=== PATIENT | male | born 1960 | race Caucasian/White ===

== ENCOUNTER 2016-09-03 11:11 | Inpatient (IN) ==
[2016-09-03 13:53] LABS: MANUAL DIFF NEEDED? NO
[2016-09-03 14:05] LABS: BASO% 0.3 % (0.0-0.8); EOS# 0.03 X1000 (0.0-0.7); EOS% 0.5 % (0.0-10.0); HEMATOCRIT 48.9 % (42.0-52.0); IMM GRAN# 0.01 X1000 (0.0-0.04); IMM GRAN% 0.2 % (0.0-0.5); LYMPH# 0.99 X1000 (1.2-3.4); LYMPH% 16.5 % (20.5-51.1); MCH 33.6 PG (27-31); MCHC 34.8 g/dL (33-37); MCV 96.6 FL (81-99); MPV 9.7 FL (7.4-10.4); NEUT% 67.5 % (42.2-75.2); PLT 231 X1000 (130-400); RBC 5.06 XMIL (4.7-6.1)
[2016-09-03 14:28] LABS: CALCIUM 10.1 mg/dL (8.8-10.2); POTASSIUM 4.1 mmol/L (3.5-5.1)
--- NOTE | 2016-09-03 14:38 | Diag Imaging Result Document ---
PROCEDURE NAME: CHEST/ABD TUBE PLACEMENT - 09/03/2016 AP CHEST AND ABDOMEN: INDICATION: For NG tube placement. FINDINGS: The NG tube is coiled in the mid esophagus. The findings were called to med/surg at 1423 hours.
[2016-09-03] MEDS: MORPHINE IV PRN ×2 (14:43→20:05)
[2016-09-03] MEDS: ZOFRAN IV PRN (14:43)
[2016-09-03] MEDS: LR 1,000 ML IV SCH ×2 (14:47→23:22)
--- NOTE | 2016-09-03 16:22 | Diag Imaging Result Document ---
PROCEDURE NAME: CHEST/ABD TUBE PLACEMENT - 09/03/2016 AP CHEST AND ABDOMEN.: FINDINGS: There is an NG tube in the stomach. There continues to be gaseous dilatation of multiple small bowel loops in the mid abdomen. IMPRESSION: NG tube in the stomach.
--- NOTE | 2016-09-03 16:37 | Diag Imaging Result Document ---
PROCEDURE NAME: ABDOMEN/PELVIS W/O CONTRAST - 09/03/2016 CT UROGRAM WITHOUT CONTRAST: FINDINGS: There are some fibrotic opacities present in the right lower lobe which were apparently also present at the time of the previous study of 01/11/2015. There is an NG tube with its tip in the stomach. The stomach is still somewhat distended with fluid and gas. There is marked dilatation of the proximal small bowel, pretty much from the ligament of Treitz. There is nondistended ileum present the transitional point may be in the upper pelvis around image 172 in the midline. There is no evidence of volvulus or definite mass. No abscess or other abnormal fluid collection is demonstrated. There are at least 2 small stones in the right collecting system. There is also apparent cyst in the midpole of the right kidney. There are no gallstones. The spleen is not enlarged. There is diverticulosis coli in the left colon, particularly the sigmoid. No evidence of diverticulitis or abscess is present. There is some gas and stool in the colon, including the rectum. There is no evidence of appendicitis. There is degenerative disk disease, particularly at the L5-S1 level. 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 IMPRESSION: Partial or early mid small bowel obstruction. Right nephrolithiasis. The findings were discussed with Dr. Sanabria by telephone at 1610 hours.
--- NOTE | 2016-09-03 17:42 | HISTORY AND PHYSICAL ---
ADMITTING DIAGNOSIS: Partial small bowel obstruction. PRIMARY CARE PHYSICIAN: Rayo Miranda. HISTORY OF PRESENT ILLNESS: A 55-year-old male presenting with a several day history of abdominal pain with nausea, vomiting. He was seen by his primary care physician, had abdominal distention, had an abdominal film that showed a partial bowel obstruction. Dr. Miranda contacted me directly. We discussed over the phone the patient's situation. We elected to directly admit him to [facility]. Patient was admitted, had an NG tube placed which has subsequently been repositioned but ultimately placed into the stomach from which he has been now draining bilious output. He says he has had some relief with the placement of an NG tube. He did have a CT scan which did confirm a small bowel obstruction. There appears to be no obvious masses or internal hernias causing the obstruction. The patient does have a surgical history which may mean this is related to scar tissue. The patient is currently nontoxic and resting comfortably in his bed. PAST MEDICAL HISTORY: Includes history of diverticulosis and hypertension. PAST SURGICAL HISTORY: Includes a left inguinal hernia repair, an unknown lower midline incision for unknown surgery. SOCIAL HISTORY: The patient is a current smoker. Also drinks alcohol once a week. Had never used illicit drugs. FAMILY HISTORY: Positive for cancer and diabetes. ALLERGIES: No known allergies. HOME MEDICATIONS: Include diltiazem. REVIEW OF SYSTEMS: A full 10 point review of systems obtained, negative except as specified in HPI. PHYSICAL EXAMINATION: VITAL SIGNS: The patient is currently afebrile. Temperature 97.6 degrees, pulse has ranged anywhere from 88-102, blood pressure is 134/84, respiratory rate 20 and nonlabored. Oxygen saturation 94% on room air. GENERAL: No acute distress. Alert, interactive, male who looks stated age. HEENT: Normocephalic, atraumatic. Pupils equal, round, reactive to light. Mucous membranes moist. NG tube in place with bilious output. Trachea midline. CARDIOVASCULAR: Regular rate and rhythm. LUNGS: Grossly clear. ABDOMEN: Soft, nondistended at this time, nontender at this time. He does have a scar in his left inguinal region consistent with inguinal hernia. He does have what appears to be a lower midline incision for unknown reasons. He has no peritoneal signs on exam. EXTREMITIES: Moves all extremities. NEUROLOGIC: Grossly intact. SKIN: No signs of jaundice. VASCULAR: All extremities perfused. DIAGNOSTIC DATA: His white blood cell count is normal. His hematocrit is normal. His platelet count is normal. He has no left shift. His labs except for a creatinine of 1.6 are within normal limits. CT scan independently reviewed and radiology report reviewed. Patient does have what appears to be a partial small-bowel obstruction but no other obvious masses or sources of obstruction. ASSESSMENT AND PLAN: A 55-year-old male with likely partial small-bowel obstruction. 1. A likely partial small bowel obstruction at this time. Given his surgical history, I suspect this might be related to adhesions. We will keep him with an NG tube and decompressed the intestinal system. Hopefully we continue to see improvement with a conservative nonoperative management. If the patient's clinical status changes may need surgical intervention. Discussed this with the patient. We will keep the NG tube to low wall intermittent suction and repeat abdominal film in the morning. 2. Dehydration. Patient's creatinine is 1.6. We will continue to resuscitate with lactated Ringer's and recheck in the morning. Suspect this is also related to his bowel obstruction. I will continue to follow him. cc: Preet Sanabria MD
[2016-09-03 19:11] LABS: CALCIUM 9.6 mg/dL (8.8-10.2)
[2016-09-04] MEDS: MORPHINE IV PRN ×2 (03:02→09:58)
[2016-09-04] MEDS: ZOFRAN IV PRN ×3 (03:02→14:44)
[2016-09-04] MEDS ORDERED: LR 1,000 ML IV ONE (07:37)
[2016-09-04] MEDS ORDERED: LR 1,000 ML IV SCH (07:38)
[2016-09-04 08:13] LABS: CALCIUM 9.4 mg/dL (8.8-10.2); POTASSIUM 3.9 mmol/L (3.5-5.1)
--- NOTE | 2016-09-04 08:18 | PROGRESS NOTE ---
DATE: 09/04/2016 SUBJECTIVE: The patient had a rough night. They did drain over a liter of bilious output from his NG tube and no overall improvement. OBJECTIVE: Vital Signs: Patient is currently afebrile. Temperature 99.1, his pulse is ranging anywhere between 97-110, respiratory nonlabored at 18, blood pressure 154/96, O2 saturation 94% on room air. General Examination: No acute distress but appears uncomfortable. male, looks stated age. HEENT: Normocephalic, atraumatic. Pupils equally round, react to light. Mucous membranes moist. Oropharynx benign. NG tube in place. Neck: Supple. Trachea midline. Cardiovascular: Regular rate and rhythm to mildly tachycardic. Lungs: Grossly clear. Abdomen: Soft. Minimally tender. No peritoneal signs. Extremities: Moves all extremities. Neurologic: Grossly intact. Skin: No signs of jaundice. Vascular: All extremities perfused. Laboratory: Reviewed from yesterday afternoon. His creatinine is down to 2.2. Repeat labs later this morning. Abdominal films were from this morning reviewed but no official report. It does appear that he has continued progression of his bowel obstruction. ASSESSMENT AND PLAN: A 55-year-old, male with a small-bowel obstruction. 1. Small bowel obstruction. At this time, patient has not had any clinical improvement with 12 hours of nasogastric tube decompression and over a liter out. Overall, it looks like he is not doing well. We will plan on surgical intervention. 2. Dehydration. At this time, we will give him a bolus of lactated Ringer's. We will increase his intravenous fluids to 150 mL an hour and monitor him closely. I discussed extensively with the patient about his prognosis. I suspect that he is not going to improve with the nasogastric tube. Discussed with him surgical intervention including exploratory laparotomy. We will transfer him over to the hospital and do an exploratory laparotomy. All questions were answered. cc: Preet Sanabria MD
--- NOTE | 2016-09-04 09:11 | Diag Imaging Result Document ---
PROCEDURE NAME: FLAT/UPRIGHT ABD/1 VIEW CHEST - 09/04/2016 FLAT AND UPRIGHT ABDOMEN: FINDINGS: The NG tube remains in the stomach. There is still air-fluid levels throughout distended small-bowel loops in the mid abdomen. There is still some retained stool and gas in the colon including the rectum. This may be more a reflection of ileus than the incomplete nature of the small-bowel obstruction. IMPRESSION: Small bowel obstruction and constipation. PA CHEST: FINDINGS: There is no evidence of acute cardiac or pulmonary disease. The appearance of the chest has not changed significantly since 09/03/2016. IMPRESSION: Stable chest.
[2016-09-04] MEDS ORDERED: MORPHINE IV PRN (10:32)
--- NOTE | 2016-09-04 11:11 | EKG Report ---
Test Performed on : 09/04/2016 10:57:36 AM Test Reason : pre-op Blood Pressure : / mmHG Vent. Rate : 081 BPM Atrial Rate : 081 BPM P-R Int : 138 ms QRS Dur : 090 ms QT Int : 378 ms P-R-T Axes : 062 -38 037 degrees QTc Int : 439 ms Normal sinus rhythm. Left axis deviation ST \T\ T wave abnormality, consider lateral ischemia Abnormal ECG No previous ECGs available Confirmed by Juancarlos Delgado MD ([id number]) on 09/04/2016 6:01:02 PM
[2016-09-04] MEDS: LR 1,000 ML IV SCH ×2 (11:53→20:50)
[2016-09-04 12:55] LABS: BASO% 0.3 % (0.0-0.8); EOS# 0.04 X1000 (0.0-0.7); EOS% 1.1 % (0.0-10.0); HEMOGLOBIN 15.9 g/dL (14.0-18.0); LYMPH# 0.67 X1000 (1.2-3.4); LYMPH% 18.9 % (20.5-51.1); MANUAL DIFF NEEDED? NO; MCH 33.2 PG (27-31); MCHC 33.8 g/dL (33-37); MCV 98.1 FL (81-99); MONO% 22.6 % (1.7-9.3); NEUT% 57.1 % (42.2-75.2); PLT 171 X1000 (130-400); RBC 4.79 XMIL (4.7-6.1)
[2016-09-04 13:10] LABS: POTASSIUM 4.1 mmol/L (3.5-5.1)
[2016-09-04] MEDS ORDERED: MEFOXIN ONE (15:31)
[2016-09-04] MEDS ORDERED: NS ONE (15:31)
[2016-09-04] MEDS ORDERED: CLAVE SECONDARY SET 11953 ONE (15:31)
[2016-09-04] MEDS: MEFOXIN 2 GM/NS 2 GM/50 ML IVPB IV ONE ×3 (15:48→16:05)
[2016-09-04] MEDS ORDERED: FENTANYL ONE (18:35)
[2016-09-04] MEDS ORDERED: DIPRIVAN 1% ONE (18:38)
[2016-09-04] MEDS ORDERED: MORPHINE ONE (18:44)
[2016-09-04] MEDS ORDERED: MORPHINE PCA IV PRN (18:58)
[2016-09-04] MEDS ORDERED: NARCAN IV PRN (18:58)
[2016-09-04] MEDS ORDERED: MORPHINE PCA ONE (19:23)
--- NOTE | 2016-09-04 21:05 | OPERATIVE NOTE ---
PROCEDURE DATE: 09/04/2016 PREOPERATIVE DIAGNOSIS: Small-bowel obstruction. POSTOPERATIVE DIAGNOSIS: Small-bowel obstruction secondary to diverticular adhesions. PROCEDURE: 1. Exploratory laparotomy. 2. Lysis of adhesions. 3. Small bowel resection with stapled [id number] functional end-to-end anastomosis. 4. Rigid proctoscopy. SURGEON: Preet Sanabria MD. CRAFT ARTIST: Dr. Alegre for the exploratory laparotomy and small-bowel resection. He assisted with dissection, resection and mobilization. ANESTHESIA: General endotracheal. INTRAOPERATIVE FINDINGS: As above. COMPLICATIONS: None at time of dictation. ESTIMATED BLOOD LOSS: 300 mL. SPECIMENS REMOVED: Small bowel. DRAINS: 19-Ethiopian Wilmer drain. BRIEF HISTORY: The patient is a 55-year-old male presenting with small-bowel obstruction. He did not improve and had a clinical deterioration. It is felt the patient would benefit from exploratory laparotomy. The risks, benefits, and alternatives were discussed. All questions answered. DESCRIPTION OF PROCEDURE: After informed consent was obtained, patient brought to the operative theatre, transferred to operating table, placed in supine position. General endotracheal anesthesia was then performed without complication. A formal time-out was then performed confirming patient, date, procedure. All were in agreement. At that time, attention was given to abdomen. After the time-out, we made a standard midline incision to enter into the abdomen. We encountered small bowel. We ran the small bowel from the ligament of Treitz to the ileocecal bowel. We found the point of obstruction down in the pelvis. The small bowel appeared to be intimately attached and scarred to the colon. With meticulous dissection we were able to take the small bowel off the colon while preserving the colon. There were 2 unavoidable enterotomies made in the small bowel secondary to their close adhesions to the colon. We closed these quickly with silk stitch. Given these injuries and the overall appearance of the small bowel having some degree of ischemia, we elected to do a small-bowel resection. We did this with a CAREN stapler and performed small-bowel anastomosis pmyo-io-tios functional end-to- end with the stapler with good results. We closed the mesenteric defect. We reexamined the colon. It appeared to be intact. There appeared to be no mucosal or serosal injuries noted. To prove this we performed a rigid proctoscopy. We placed the patient in frogleg position and performed a digital rectal exam and then inserted a rigid proctoscopy. We looked at the mucosal surface. It appeared to be normal. Inflated the colon. While under water we did not see any bubbles. The colon itself appeared to be normal. There was some degree of contamination during the procedure, so we elected to leave a drain. We tunneled a 19-Ethiopian Wilmer drain from the right lower quadrant down into the pelvis. We irrigated out the abdomen copiously. We closed the fascia in layers using chromic for the peritoneum and running loop PDS for the fascia, and argenis for the skin. The patient tolerated procedure well. It should be noted that we confirmed the NG tube was in the stomach at the completion the case. Postoperatively, we will keep him on antibiotics given the contamination and follow him clinically. cc: Preet Sanabria MD
[2016-09-04] MEDS: MEFOXIN 2 GM/NS 2 GM/50 ML IVPB IV SCH (22:52)
[2016-09-05] MEDS: MORPHINE PCA IV PRN ×2 (02:36→13:21)
[2016-09-05] MEDS: PERIDEX MT SCH ×3 (03:22→21:00)
[2016-09-05 04:33] LABS: URINE CULTURE NEEDED? NO; URINE MICRO REVIEW NEEDED? NO; URINE SOURCE CATH
[2016-09-05 04:34] LABS: BILIRUBIN URINE NEGATIVE (NEGATIVE); BLOOD URINE NEGATIVE (NEGATIVE); COLOR YELLOW; GLUCOSE URINE NEGATIVE (NEGATIVE); LEUKOCYTES URINE NEGATIVE (NEGATIVE); NITRITE URINE NEGATIVE (NEGATIVE); PROTEIN URINE 50 mg/dL (NEGATIVE); SP GRAVITY URINE 1.025; TURBIDITY URINE CLEAR (CLEAR); UROBILINOGEN URINE NORMAL (NORMAL)
[2016-09-05 04:35] LABS: UR EPITHELIAL CELLS <10 /HPF (<10); URINE BACTERIA NEGATIVE /HPF; URINE WBC <10 /HPF (<10)
[2016-09-05] MEDS: MEFOXIN 2 GM/NS 2 GM/50 ML IVPB IV SCH ×4 (05:01→20:59)
[2016-09-05] MEDS: HEPARIN SUBQ SCH ×3 (05:01→20:59)
[2016-09-05] MEDS: LR 1,000 ML IV SCH ×4 (05:02→20:59)
--- NOTE | 2016-09-05 07:33 | PROGRESS NOTE ---
DATE: 09/05/2016 SUBJECTIVE: The patient is doing well. No major issues. He says he feels better after his surgery. His NG tube output has decreased. His urine output has been good since the surgery. OBJECTIVE: Vital Signs: The patient is currently afebrile. His vital signs have been stable. General: No acute distress. Cardiovascular: Regular rate and rhythm. Lungs are grossly clear. Abdomen soft, appropriately tender. Incision is clean, dry, and intact. ASSESSMENT AND PLAN: A 55-year-old male, now postop day 1 from exploratory laparotomy and small bowel resection for small bowel obstruction. 1. Postoperative state. At this time, the patient is doing well. We will keep his NG tube in place until he has return of bowel function and monitor him closely. We will keep him on a PROCESS CONTROL SUPERVISOR until then. 2. Dehydration. At this time, I suspect the patient has been resuscitated. He is having good urine output. Will discontinue his Schofield. cc: Preet Sanabria MD
[2016-09-05] MEDS ORDERED: NORCURON ONE (09:51)
[2016-09-05] MEDS ORDERED: DECADRON ONE (09:51)
[2016-09-05] MEDS ORDERED: ZOFRAN ONE (09:51)
[2016-09-05] MEDS ORDERED: EXTENSION SET 32 IN 4522 ONE (09:51)
[2016-09-05] MEDS ORDERED: STERILE WATER INJ. ONE (09:51)
[2016-09-05] MEDS ORDERED: ROBINUL ONE (09:51)
[2016-09-05] MEDS ORDERED: XYLOCAINE-MPF 2% ONE (09:51)
[2016-09-05] MEDS ORDERED: ANESTHESIA PB SET 88 IN 5742 ONE (09:51)
[2016-09-05] MEDS ORDERED: LR 4,000 ML ONE (09:51)
[2016-09-05] MEDS ORDERED: QUELICIN (DOSE) ONE (09:51)
[2016-09-05] MEDS ORDERED: NEOSTIGMINE ONE (09:51)
[2016-09-06] MEDS: MEFOXIN 2 GM/NS 2 GM/50 ML IVPB IV SCH ×5 (04:18→21:19)
[2016-09-06] MEDS: LR 1,000 ML IV SCH ×5 (04:19→21:19)
[2016-09-06] MEDS: HEPARIN SUBQ SCH ×3 (06:12→21:19)
[2016-09-06] MEDS ORDERED: SODIUM CHLORIDE 0.9% INJ SCH (07:00)
[2016-09-06] MEDS: PERIDEX MT SCH ×2 (08:17→21:19)
[2016-09-06] MEDS: SODIUM CHLORIDE 0.9% INJ SCH (08:19)
[2016-09-06] MEDS: PROTONIX IV SCH (08:19)
[2016-09-06 10:19] LABS: AGAP 9; BUN 20 mg/dL (8-22); CALCIUM 8.3 mg/dL (8.8-10.2); CHLORIDE 98 mmol/L (98-107); COSMO 273; SODIUM 136 mmol/L (136-145); TCO2 29 mmol/L (25-35)
--- NOTE | 2016-09-06 10:29 | PROGRESS NOTE ---
DATE: 09/06/2016 SUBJECTIVE: Feels better. He has started passing a little gas last night. NG tube output is quite high. He is drinking some ice. OBJECTIVE: No fever. He was 98.4 this morning, pulse 87, blood pressure 145/80 , oxygen saturation 100% on 2 L. General: He is alert. NG tube is bilious Abdomen is soft, appropriately tender. Dressing is clean, dry, and intact. I do not see any cellulitis. LABORATORIES: Labs are pending this morning. ASSESSMENT AND PLAN: This is a 55-year-old male status post exploratory laparotomy with lysis of adhesions for bowel obstruction with small-bowel resection. NG tube put out 1650, but he is having return of bowel function. Keep his NG tube today. If he continues to pass gas today we will discontinue it tomorrow. We will replete his electrolytes as appropriate. He is also on antibiotic per Dr. Sanabria. He is on PPI and DVT prophylaxis. He has a CYCLE COUNTER for pain. cc: MD Preet Phillips MD MTDD
[2016-09-06] MEDS: MORPHINE PCA IV PRN (10:32)
[2016-09-06 18:13] LABS: BASO% 0.2 % (0.0-0.8); EOS# 0.14 X1000 (0.0-0.7); EOS% 2.6 % (0.0-10.0); HEMATOCRIT 36.4 % (42.0-52.0); HEMOGLOBIN 12.1 g/dL (14.0-18.0); IMM GRAN# 0.02 X1000 (0.0-0.04); IMM GRAN% 0.4 % (0.0-0.5); LYMPH# 0.52 X1000 (1.2-3.4); LYMPH% 9.5 % (20.5-51.1); MANUAL DIFF NEEDED? NO; MCH 33.3 PG (27-31); MCHC 33.2 g/dL (33-37); MCV 100.3 FL (81-99); MONO# 0.32 X1000 (0.11-0.59); MONO% 5.8 % (1.7-9.3); MPV 10.9 FL (7.4-10.4); NEUT% 81.5 % (42.2-75.2); PLT 104 X1000 (130-400); RBC 3.63 XMIL (4.7-6.1)
[2016-09-07] MEDS: LR 1,000 ML IV SCH ×4 (03:04→22:51)
[2016-09-07] MEDS: MEFOXIN 2 GM/NS 2 GM/50 ML IVPB IV SCH ×5 (03:10→18:21)
[2016-09-07] MEDS: HEPARIN SUBQ SCH ×3 (05:51→21:09)
[2016-09-07] MEDS: SODIUM CHLORIDE 0.9% INJ SCH (05:52)
[2016-09-07] MEDS: PROTONIX IV SCH ×2 (05:52→06:00)
[2016-09-07] MEDS: PERIDEX MT SCH ×3 (07:49→21:09)
[2016-09-07] MEDS: MORPHINE PCA IV PRN (10:07)
--- NOTE | 2016-09-07 15:24 | PROGRESS NOTE ---
DATE: 09/07/2016 SUBJECTIVE: He is doing well. He is passing gas. NG tube output has been about a liter, but he has eaten quite a bit of ice and water. No real abdominal pain. OBJECTIVE: Vital signs: No fevers, no tachycardia. Blood pressure 150/76. Abdomen: Soft, appropriately tender. Incision clean, dry, and intact. A scant amount of drainage in the central aspect and no erythema here. LABORATORY: I reviewed his labs. ASSESSMENT: This is a 55-year-old male status post exploratory laparotomy with bowel resection for small bowel obstruction. He is doing well. He has had return of bowel function. NG tube output was marginally elevated and bilious, but he is eating and drinking quite a lot. We will test clamp his tube today and if residuals are low, we will discuss removing that this afternoon. Otherwise, increase out of bed, mobility and ambulation and advance his diet as tolerated after tube removal. cc: MD Preet Phillips MD
[2016-09-08] MEDS: LR 1,000 ML IV SCH ×3 (06:10→21:21)
[2016-09-08] MEDS: SODIUM CHLORIDE 0.9% INJ SCH (06:11)
[2016-09-08] MEDS: PROTONIX IV SCH (06:11)
[2016-09-08] MEDS: HEPARIN SUBQ SCH ×3 (06:11→21:21)
--- NOTE | 2016-09-08 06:32 | PROGRESS NOTE ---
DATE: 09/08/2016 SUBJECTIVE: Patient doing well. Tolerating his NG tube out. Reports passage of flatus. No bowel movement yet. OBJECTIVE: Vital Signs: Patient is currently afebrile. His vital signs are stable. General: No acute distress. Cardiovascular: Regular rate and rhythm. Lungs: Grossly clear. Abdomen: Soft, nondistended. Appropriately tender. Faint bowel sounds auscultated. LABORATORY: Currently none. ASSESSMENT AND PLAN: A 55-year-old male status post exploratory laparotomy with small bowel resection for adhesions. Postoperative state at this time, we will start the patient on clear liquid diet and monitor him closely. If he seemed to improved and tolerated well, we will advance him and transition him over to a regular diet and p.o. pain medicine. At this point once his bowel function returns we will have him discharged. cc: Preet Sanabria MD
[2016-09-08] MEDS: PERIDEX MT SCH ×2 (09:54→21:22)
[2016-09-08] MEDS: MORPHINE PCA IV PRN (19:36)
[2016-09-09] MEDS: ZOFRAN IV PRN ×2 (02:09→12:22)
--- NOTE | 2016-09-09 06:05 | PROGRESS NOTE ---
DATE: 09/09/2016 SUBJECTIVE: The patient did have a bowel movement. Did have an episode of emesis. He says he is not feeling nauseated right now but wants to remain on his clear liquid diet. OBJECTIVE: Vital Signs: Patient is currently afebrile. His vital signs have been stable. General Examination: No acute distress. Cardiovascular: Regular rate and rhythm. Lungs: Grossly clear. Abdomen: Soft, nondistended, and appropriately tender. COMFORT drain in place with 160 of serosanguineous output. Laboratory: None. ASSESSMENT AND PLAN: A 55-year-old, male status post exploratory laparotomy with small bowel resection for adhesions. Postoperative state. At this time, patient will remain on a clear liquid diet given his nausea and emesis. I think he is having to start of return of bowel function. We will wait for full return of bowel function prior to discharge and advancement of his diet. We will continue monitoring his Onofre-Pickard drain output. cc: Preet Sanabria MD
[2016-09-09] MEDS: SODIUM CHLORIDE 0.9% INJ SCH (06:15)
[2016-09-09] MEDS: PROTONIX IV SCH (06:15)
[2016-09-09] MEDS: HEPARIN SUBQ SCH ×3 (06:15→21:19)
[2016-09-09] MEDS: LR 1,000 ML IV SCH ×3 (07:44→21:19)
[2016-09-09] MEDS: PERIDEX MT SCH ×2 (09:17→21:20)
[2016-09-10] MEDS: LR 1,000 ML IV SCH ×7 (00:13→21:38)
[2016-09-10] MEDS: ZOFRAN IV PRN ×3 (03:03→18:55)
[2016-09-10] MEDS: MORPHINE PCA IV PRN (05:14)
[2016-09-10] MEDS: PROTONIX IV SCH (06:27)
[2016-09-10] MEDS: SODIUM CHLORIDE 0.9% INJ SCH ×2 (06:27→06:29)
[2016-09-10] MEDS: HEPARIN SUBQ SCH ×3 (06:27→21:38)
--- NOTE | 2016-09-10 06:31 | PROGRESS NOTE ---
DATE: 09/10/2016 SUBJECTIVE: Patient still with some nausea, although he is passing gas. He has not had a bowel movement since yesterday. His nausea is somewhat better but still persistent. He is still on a clear liquid diet. OBJECTIVE: Vital Signs: Patient is currently afebrile. His vital signs have been stable. General Examination: No acute distress. Cardiovascular: Regular rate and rhythm. Lungs: Grossly clear. Abdomen: Soft, nondistended. Appropriately tender to palpation. COMFORT drain in place with serosanguineous output. Laboratory: None. ASSESSMENT/PLAN: A 55-year-old, male status post exploratory laparotomy with small bowel resection for adhesions. Postoperative state. At this time, the patient probably still has somewhat of a postoperative ileus. We will keep him on a clear liquid diet and monitor his nausea. If his nausea improves, we will consider advancing his diet. Otherwise, patient is to mobilize today. cc: Preet Sanabria MD
[2016-09-10] MEDS: PERIDEX MT SCH ×3 (07:38→21:38)
[2016-09-11] MEDS: ZOFRAN IV PRN ×2 (02:46→21:06)
[2016-09-11] MEDS: LR 1,000 ML IV SCH ×5 (02:59→21:29)
[2016-09-11] MEDS: HEPARIN SUBQ SCH ×3 (05:35→21:29)
[2016-09-11] MEDS: MORPHINE PCA IV PRN (06:07)
--- NOTE | 2016-09-11 06:11 | PROGRESS NOTE ---
DATE: 09/11/2016 SUBJECTIVE: The patient did have an episode of emesis last night but says that he is feeling better. He is reporting still passing gas. He has had no bowel movement since 2 days ago. His nausea seems to be improving. He is tolerating his clear liquid diet except for that episode of nausea. OBJECTIVE: Vital Signs: Patient is currently afebrile. His vital signs have been stable. Cardiovascular: Regular rate and rhythm. Lungs: Grossly clear. Abdomen: Soft, nondistended. Appropriately tender to palpation. Incision healing okay. There is some mild erythema noted around his umbilicus and inferiorly. The Onofre-Pickard drain is in place with serous output recorded at 700. Laboratory: None. ASSESSMENT AND PLAN: A 55-year-old, male status post exploratory laparotomy with small- bowel resection for adhesions. Postoperative state. At this time, the patient still probably has likely a postoperative ileus. We will keep him on a clear liquid diet until his nausea improves. His Onofre-Pickard is at 700 recorded out. It is purely serous. If it continues to be high, may consider getting a Onofre- Pickard creatinine level. Although we were far away from his bladder and his ureters, we may need to rule that out as a possible injury but will monitor his output. If it decreases, we will just observe. Otherwise, we will wait the patient to have definitive return of bowel function. cc: Preet Sanabria MD
[2016-09-11] MEDS: SODIUM CHLORIDE 0.9% INJ SCH (10:15)
[2016-09-11] MEDS: PROTONIX IV SCH (10:15)
[2016-09-11] MEDS: PERIDEX MT SCH ×2 (10:15→21:29)
[2016-09-12] MEDS: ZOFRAN IV PRN (03:29)
[2016-09-12] MEDS: LR 1,000 ML IV SCH ×4 (03:29→23:31)
[2016-09-12] MEDS: MORPHINE PCA IV PRN (03:36)
[2016-09-12] MEDS ORDERED: LR 1,000 ML IV ONE (05:46)
[2016-09-12] MEDS: PROTONIX IV SCH (06:15)
[2016-09-12] MEDS: SODIUM CHLORIDE 0.9% INJ SCH (06:15)
[2016-09-12] MEDS: HEPARIN SUBQ SCH ×3 (06:15→21:53)
--- NOTE | 2016-09-12 06:16 | PROGRESS NOTE ---
DATE: 09/12/2016 SUBJECTIVE: Patient still with some nausea. Most of his nausea apparently sounds like after he coughs he does feel a little bit bloated. He says he is still passing gas out his bottom. OBJECTIVE: Vital Signs: Patient is currently afebrile. His vital signs are stable. COMFORT drain has 400 recorded out, looks serous. General: No acute distress. Cardiovascular: Regular rate and rhythm. Lungs: Grossly clear. Abdomen: Soft, mildly distended. Faint bowel sounds auscultated. Incision with some erythema noted. Onofre-Pickard drain in place with serous output. LABORATORY: None currently. ASSESSMENT AND PLAN: A 55-year-old male status post exploratory laparotomy with small- bowel resection for adhesions. Postoperative state at this time, patient likely still has a postoperative ileus. We will keep him on his clear liquid diet until his nausea improves. His Onofre-Pickard drain had 400 recorded out. We will check a COMFORT creatinine to make sure he does not have some kind urinary injury. He is making urine on his own and recorded a half a L to even 1 L yesterday. We will give him a fluid bolus. If there is an elevated COMFORT creatinine, we will consider consulting Urology. My partner will cover the patient while I am gone this weekend. cc: Preet Sanabria MD
[2016-09-12] MEDS: PERIDEX MT SCH ×2 (09:47→21:53)
[2016-09-12 10:18] LABS: CREATININE BODY FLUID 0.4 mg/dL
[2016-09-13] MEDS: MORPHINE PCA IV PRN (03:33)
[2016-09-13] MEDS: SODIUM CHLORIDE 0.9% INJ SCH (06:31)
[2016-09-13] MEDS: HEPARIN SUBQ SCH ×3 (06:31→21:51)
[2016-09-13] MEDS: PROTONIX IV SCH (06:31)
[2016-09-13] MEDS: LR 1,000 ML IV SCH (06:32)
[2016-09-13] MEDS: PERIDEX MT SCH ×2 (09:03→21:51)
[2016-09-13] MEDS: D5 1/2 NS + KCL 20 MEQ 1,000 ML IV SCH ×2 (09:05→22:01)
--- NOTE | 2016-09-13 09:24 | PROGRESS NOTE ---
DATE: 09/13/2016 SUBJECTIVE: Mr. Barth is a 55-year-old, white male, patient of Dr. Preet Sanabria, who on 09/04/2016, underwent small bowel resection with stapled end-to-end anastomosis secondary to small- bowel obstruction. He is now postop day 9. OBJECTIVE: He continues to be distended. He has a drain in which is draining serous fluid. His midline incision is a little bit red. He is awake and cooperative. He does not have an NG tube. He has a nasal cannula in place. His heart rate is 83, blood pressure 163/84. O2 saturation 98%. He is voiding without Schofield. His COMFORT drain last shift had 130 mL out. He has not had recent labs. PLAN: We need to try to get him off morphine in hopes that we can get his bowels working. He is on a clear liquid diet. He needs to increase his activity. We need to watch his midline wound for soft tissue infection. We will remove his drain after the creatinine level is evaluated. cc: MD Preet Powers MD
[2016-09-14] MEDS: MORPHINE PCA IV PRN ×2 (04:14→22:51)
[2016-09-14] MEDS: PROTONIX IV SCH (06:45)
[2016-09-14] MEDS: HEPARIN SUBQ SCH ×3 (06:46→20:46)
--- NOTE | 2016-09-14 10:00 | PROGRESS NOTE ---
DATE: 09/14/2016 Mr. Barth is status post a small bowel resection on 09/04/[address] Sanabria. It appears that he has developed a midline wound infection with drainage and redness involving his midline wound, and I will have to remove some argenis and clean up the wound with peroxide. We will also take cultures. He has an intra-abdominal drain in place. The creatinine was 0.4 yesterday so will remove that intra-abdominal drain also. His abdomen is less distended today and he states that he has had some flatus. His heart rate is 75, blood pressure 132/72, O2 saturation 95% on nasal cannula O2. He does not have a Schofield catheter tube in. His drain is draining 90-150 mL. He is on a clear liquid diet and Ensure. He is on no antibiotics. He is afebrile. PLAN: We will open up his midline incision and take cultures. We will start him on IV antibiotics for this wound infection. We will remove his abdominal drain. His diet needs to be advanced as he tolerates it. cc: MD Preet Powers MD
[2016-09-14] MEDS: D5 1/2 NS + KCL 20 MEQ 1,000 ML IV SCH (10:50)
[2016-09-14] MEDS: PERIDEX MT SCH ×2 (10:50→20:46)
[2016-09-15] MEDS: D5 1/2 NS + KCL 20 MEQ 1,000 ML IV SCH ×3 (04:37→23:41)
[2016-09-15] MEDS: HEPARIN SUBQ SCH ×4 (04:37→21:32)
[2016-09-15] MEDS: PROTONIX IV SCH (06:00)
--- NOTE | 2016-09-15 06:16 | PROGRESS NOTE ---
DATE: 09/15/2016 SUBJECTIVE: The patient is doing better. He had his wound opened up by Dr. Shepherd. He had some purulence drained. He otherwise reports passing gas and less nauseated. He wants essentially regular food now. Overall, he looks like he is feeling better. PHYSICAL EXAMINATION: Vital Signs: The patient is currently afebrile. His vital signs have been stable. General: No acute distress. Cardiovascular: Regular rate and rhythm. Lungs: Grossly clear. Abdomen: Soft, mildly distended. Faint bowel sounds auscultated. The incision is opened with good granulation tissue. A wet-to-dry dressing change is done. LABORATORY DATA: None. ASSESSMENT AND PLAN: A 55-year-old male, status post exploratory laparotomy with small bowel resection for adhesions. Postoperative state: At this time, the patient's postoperative ileus appears to be improving. We will advance him to a regular diet. Continue mobilization. As far as his is wound at his midline, it has been opened up. We will start him on Bactrim and continue wet-to-dry dressing changes. Overall, the wound appears healthy. Hopefully, we can discharge the patient in the next few days. cc: Preet Sanabria MD
[2016-09-15] MEDS: SEPTRA DS PO SCH ×2 (11:17→21:31)
[2016-09-15] MEDS: PERIDEX MT SCH ×2 (11:17→21:32)
[2016-09-15] MEDS: MORPHINE PCA IV PRN (22:01)
[2016-09-16] MEDS: HEPARIN SUBQ SCH ×3 (06:00→21:15)
[2016-09-16] MEDS: SODIUM CHLORIDE 0.9% INJ SCH (06:00)
[2016-09-16] MEDS: PROTONIX IV SCH (06:00)
[2016-09-16] MEDS: PERIDEX MT SCH ×2 (08:17→21:15)
[2016-09-16] MEDS: SEPTRA DS PO SCH ×2 (08:17→21:15)
--- NOTE | 2016-09-16 09:45 | PROGRESS NOTE ---
DATE: 09/16/2016 SUBJECTIVE: Patient doing better, had a bowel movement, feels less nauseated. Tolerated his regular diet. EXAMINATION: Vital Signs: Patient is currently afebrile. His vital signs have been stable. General Examination: No acute distress. Cardiovascular: Regular rate and rhythm. Lungs: Grossly clear. Abdomen: Soft, mildly distended. Bowel sounds auscultated. Incision is open with good granulation tissue. Wet-to-dry dressing in place. LABORATORY: None. ASSESSMENT AND PLAN: A 55-year-old, male status post exploratory laparotomy with small bowel resection for adhesions. Postoperative state. At this time, we will stop his [employer], transition to oral pain medicine. Stop his intravenous fluids. Continue to monitor him. Hopefully, we will be able to discharge him in the next day or two. We will continue the Bactrim for right now for his wound infection. He will continue the wet-to-dry dressing changes. cc: Preet Sanabria MD
[2016-09-16] MEDS: PERCOCET-10 PO PRN (15:25)
[2016-09-17] MEDS: PERCOCET-10 PO PRN ×2 (01:05→09:28)
[2016-09-17] MEDS: HEPARIN SUBQ SCH (06:43)
[2016-09-17] MEDS: SODIUM CHLORIDE 0.9% INJ SCH (06:43)
[2016-09-17] MEDS: PROTONIX IV SCH (06:43)
[2016-09-17 07:15] VITALS: BP 147/76
[2016-09-17] MEDS: PERIDEX MT SCH (08:24)
[2016-09-17] MEDS: SEPTRA DS PO SCH (08:24)
--- NOTE | 2016-09-18 08:20 | DISCHARGE SUMMARY ---
ADMISSION DATE: 09/03/2016 DISCHARGE DATE: 09/17/2016 ADMITTING DIAGNOSIS: Small-bowel obstruction. DISCHARGE DIAGNOSES: 1. Status post small bowel resection secondary to it adhesions. 2. Midline wound infection. ADMITTING PHYSICIAN: Dr. Preet Sanabria. CONSULTS: None. PROCEDURES: On 09/04/2016, the patient underwent exploratory laparotomy with small-bowel resection. BRIEF HISTORY AND COURSE OF STAY: Patient is a 55-year-old male, admitted on 09/03/2016 initially at [place] with a bowel obstruction. He continued to have decline. He was transferred over to [facility] and underwent exploratory laparotomy. At that time, we found a small bowel obstruction secondary to adhesions likely secondary to diverticulitis in the past. We had to remove a section of the small bowel. He tolerated the procedure well and was transferred to the floor for the postoperative period. His initial postoperative period was complicated by a postoperative ileus which did resolve over the course of a week and a half. He did develop a small midline wound infection which was opened and drained and wet-to-dry dressing was started. On the day of discharge he was ambulating, tolerating p.o. sufficiently competent enough to do his own wet-to-dry dressing changes, and therefore it is felt the patient would be safe to be discharged home. He had been afebrile and having bowel movements. Therefore, all arrangements were made. DISPOSITION: Home. DISCHARGE CONDITION: Stable. FOLLOWUP: Patient told to follow up with me next week. Patient was also told to follow up with his primary care physician, Dr. Miranda in 1-2 weeks. PRESCRIPTIONS: Patient given prescription for pain medicine and Bactrim. cc: Preet Sanabria MD
== END 2016-09-17 10:26 | disposition home or self-care (01) ==
LOC: P.DIRADM 11:11 → P.MEDSURG 11:54 → 4N 09-04 10:29 → DIRADM 09-04 14:19
PROVIDERS: ADMIT Surgery; ATTEND Surgery

== ENCOUNTER 2017-01-25 13:26 | Inpatient (IN) ==
[2017-01-25] MEDS ORDERED: DILAUDID IV ONE ×2 (13:48→17:26)
[2017-01-25] MEDS ORDERED: NS IV ONE (13:49)
[2017-01-25] MEDS ORDERED: ZOFRAN IV ONE ×2 (13:49→14:51)
[2017-01-25] MEDS ORDERED: NS 1,000 ML IV ONE ×2 (13:53→14:51)
[2017-01-25 14:13] LABS: MANUAL DIFF NEEDED? NO
[2017-01-25 14:17] LABS: BASO% 0.2 % (0.0-0.8); EOS# 0.03 X1000 (0.0-0.7); EOS% 0.2 % (0.0-10.0); HEMATOCRIT 47.6 % (42.0-52.0); HEMOGLOBIN 16.6 g/dL (14.0-18.0); IMM GRAN# 0.03 X1000 (0.0-0.04); IMM GRAN% 0.2 % (0.0-0.5); LYMPH# 1.29 X1000 (1.2-3.4); LYMPH% 10.4 % (20.5-51.1); MCH 32.3 PG (27-31); MCHC 34.9 g/dL (33-37); MCV 92.6 FL (81-99); MONO# 0.75 X1000 (0.11-0.59); MPV 9.9 FL (7.4-10.4); PLT 277 X1000 (130-400); RBC 5.14 XMIL (4.7-6.1)
[2017-01-25 14:24] LABS: URINE MICRO REVIEW NEEDED? NO; URINE SOURCE CLEAN CATCH
[2017-01-25] MEDS ORDERED: DILAUDID ONE ×2 (14:28→17:28)
[2017-01-25] MEDS ORDERED: ZOFRAN ONE (14:28)
[2017-01-25 14:32] LABS: AGAP 16; ALBUMIN 4.7 g/dL (3.5-5.0); ALKALINE PHOSPHATASE 102 U/L (32-122); BUN 17 mg/dL (8-22); CALCIUM 9.7 mg/dL (8.8-10.2); CHLORIDE 95 mmol/L (98-107); COSMO 279; GOT 19 U/L (10-34); GPT 13 U/L (10-44); POTASSIUM 4.5 mmol/L (3.5-5.1); SODIUM 138 mmol/L (136-145); TCO2 27 mmol/L (25-35); TOTAL BILIRUBIN 1.21 mg/dL (0.20-1.00); TOTAL PROTEIN 8.4 g/dL (6.3-8.3)
[2017-01-25 14:33] LABS: BILIRUBIN URINE SMALL (NEGATIVE); BLOOD URINE TRACE (NEGATIVE); COLOR YELLOW; GLUCOSE URINE NEGATIVE (NEGATIVE); LEUKOCYTES URINE NEGATIVE (NEGATIVE); NITRITE URINE NEGATIVE (NEGATIVE); PH URINE 5.5; PROTEIN URINE 50 mg/dL (NEGATIVE); SP GRAVITY URINE 1.028; TURBIDITY URINE CLEAR (CLEAR); UROBILINOGEN URINE 2 mg/dL (NORMAL)
[2017-01-25 14:35] LABS: UR EPITHELIAL CELLS <10 /HPF (<10); URINE BACTERIA NEGATIVE /HPF; URINE RBC <10 /HPF (<10); URINE WBC <10 /HPF (<10)
--- NOTE | 2017-01-25 15:17 | Diag Imaging Result Doc PS360 ---
CT ABD/PELVIS W/ IV CONT ONLY - 01/25/2017 INDICATION: severe abdominal pain TECHNIQUE: A CT dose reduction protocol was used. COMPARISON: 09/03/2016 FINDINGS: The lung bases are clear and the heart size is normal. There are stable nonobstructing bilateral renal stones. Stable renal cysts. There is trace perihepatic free fluid. There are surgical suture lines in the left upper quadrant. There are several abnormally distended loops of small bowel in the pelvis and the lower quadrants of the abdomen. The stomach and proximal small bowel appears fairly normal. There are numerous diverticula of the sigmoid colon. Urinary bladder, prostate, and rectum are normal. No free air. There are chronic bilateral L5 pars defects. No acute bony lesion. IMPRESSION: 1. Partial small bowel obstruction distally, and the pelvis. 2. Trace ascites. 3. Bilateral nephrolithiasis. Electronically signed by Michael Power 01/25/2017 3:15 PM
--- NOTE | 2017-01-25 16:00 | PROVIDER DOCUMENTATION ---
This chart was entered by Thuy Stephens Scribe, acting as scribe for Saroj Neely MD. HPI-Abdominal Pain/GI Problem - General Chief Complaint: Abdominal Pain Stated Complaint: NAUSEA/VOMITING Time Seen by Provider: 01/25/17 13:37 Source: patient Allergies/Adverse Reactions: Patient Allergies Allergy/AdvReac Type Severity Reaction Status Date / Time hydrocodone bitartrate * Allergy Unknown Verified 01/25/17 14:19 [From Lorcet (hydrocodone)] Home Medications: Home Medication List Medication Instructions Recorded Confirmed Last Taken Type NK [No Home Medications] 01/25/17 01/25/17 Unknown History - History of Present Illness-ABD Nature of Presenting Problems: Pt is a 56 y/o M presents to the ED with abdominal pain. Pt states abdominal pain has been present for 24 hrs. Pt states nausea and vomiting. Pt emesis is yellow in color. Pt denies diarrhea. Pt states having a BM this am. Pt states having a bowel blockage in August and having surgery. Pt's friend states Pt's incision site became infected and had to have surgery to remove infection. Pt denies fever. Abdominal Pain Onset Location: reports: generalized abdomen Pain Radiation: reports: no radiation Quality of Pain: reports: aching Severity in ED: reports: severe Onset/Duration: reports: 24 hours ago Timing: reports: still present Activities at Onset: reports: light activity Exposure to sick contacts?: No Associated Symptoms: reports: nausea, vomiting. denies: anxiety, arm pain, back /neck pain, chest pain, constipation, cough, diaphoresis, diarrhea, dizziness, EENT symptoms, fatigue, fever/chills, genitourinary problems, headaches, heartburn, joint pain, loss of appetite, malaise, muscle aches, sinus congestion /drainage, rash, seizure, shortness of breath, sensory/motor loss, pain with inspiration, swelling/mass in abdomen, syncope, weakness, trouble walking Last BM: this morning Dark Stools Present?: reports: none noticed Rectal Bleeding: reports: none # of Diarrhea Episodes: 0 Rectal Pain: reports: none # of Vomiting Episodes: 10 Emesis Description: reports: other (yellow) Bruising or Bleeding Gums?: No Similar Symptoms Previously?: Yes (presnt for 24 hrs) Recently seen or treated by another doctor?: Yes (admitted August for bowel obstruction ) Review of Systems - Adult - REVIEW OF SYSTEMS - ADULT Constitutional: reports: no symptoms reported Eyes: reports: no symptoms reported Ears, Nose, Mouth & Throat: reports: no symptoms reported Cardiovascular: reports: no symptoms reported Respiratory: reports: no symptoms reported Gastrointestinal: reports: abdominal pain, nausea, vomiting. denies: constipation, diarrhea Genitourinary: reports: no symptoms reported Musculoskeletal: reports: no symptoms reported Integumentary: reports: no symptoms reported Neurological: reports: no symptoms reported Psychiatric: reports: no symptoms reported Endocrine: reports: no symptoms reported Hematologic/Lymphatic: reports: no symptoms reported Allergic/Immunologic: reports: no symptoms reported All Other Systems: Reviewed and Negative Past History - Adult - PAST MEDICAL HISTORY-ADULT Review of Records: reports: Nursing Assessment Review, Medications Reviewed, Social history reviewed & non-contributory. Major Childhood Illnesses: reports: denies history Cardiovascular: reports: denies history Respiratory: reports: denies history Gastrointestinal: reports: denies history Obstetrical/Gynecological: reports: denies history Genitourinary: reports: kidney stones Musculoskeletal: reports: denies history Neurological: reports: denies history Endocrine/Immune: reports: denies history Other Conditions: reports: denies history - PRIOR SURGERIES/PROCEDURES Surgical/Procedure History: reports: reviewed, not pertinent - IMMUNIZATION STATUS Childhood Immunizations: See Nurse Assessment Flu Vaccine: See Nurse Assessment - FAMILY HISTORY Family History: reviewed, not pertinent - SOCIAL HISTORY Smoking: quit less than 1 year, cigarettes Substance Use: denies Living Situation: family Physical Exam-General - PHYSICAL EXAM-ADULT Initial Vital Signs Reviewed: Yes - CONSTITUTIONAL General Appearance: alert, moderate distress. negative: lethargic, slow to respond - EYES Eyes: PERRL/EOMI, pink conjunctivae. negative: pale conjunctivae, sunken eyes - HEAD, EARS, NOSE, MOUTH & THROAT HENMT: normocephalic/atraumatic, moist mucous membranes, normal ENT inspection. negative: angioedema, hearing deficit - NECK Neck: normal inspection. negative: lymphadenopathy, tender lateral - RESPIRATORY Respiratory: chest non-tender, lungs clear, normal breath sounds. negative: rales, rhonchi, stridor - CARDIOVASCULAR Cardiovascular: normal peripheral pulses, regular rate, rhythm. negative: tachycardia, systolic murmur - GASTROINTESTINAL (ABDOMEN) Abdominal Exam: abnormal bowel sounds (no bowel sounds presents to all four quadrants), tenderness (LLQ). negative: hernia - LYMPHATIC Lymphatic: no adenopathy. negative: enlargement, streaking - MUSCULOSKELETAL Back Exam: normal inspection. negative: ecchymosis, swelling Extremity: normal range of motion, normal inspection. negative: deformity, swelling - SKIN Integumentary: normal color, normal turgor, warm/dry. negative: diaphoresis, ecchymosis, erythema - NEUROLOGIC Neurologic: grossly normal. negative: aphasia, facial droop - PSYCHIATRIC Psych/Mental Status: normal mood/affect, oriented x 3. negative: paranoid, tearful Progress - PLAN OF CARE/RESULTS Progress/Plan/Lab Results: Vital Signs - 8 hr 01/25/17 13:30 Temperature 97.6 F Pulse Rate 98 H Respiratory Rate 20 Blood Pressure 153/79 O2 Sat by Pulse Oximetry 99 Result Diagrams: 01/25/17 14:03 01/25/17 14:03 - CT/MRI 1 CT Study: Abdomen, Pelvis Impression: Abnormal (1. Partial small bowel obstruction distally, and the pelvis. 2. Trace ascites. 3. Bilateral nephrolithiasis.) - CONSULTS/PCP/HOSPITALIST Notification #1 *Consult/PCP/Hospitalist*: Dr. Molina Time Discussed: 15:25 Reason/Comments: Dr. Neely consulted with Dr. Molina about Pt Consult Disposition: Will see in ED Departure - Departure Date of Disposition Decision: 01/25/17 Time of Disposition Decision: 15:19 DIAGNOSIS: Small bowel obstruction Disposition: ADMITTED INPATIENT 09 Certified Medical Emergency: Emergent Condition: Fair Referrals and Follow-Ups: Rayo Miranda MD [Primary Care Provider] - - Critical Care Note This patient required my direct & personal management of CC.: No Attestation - Physician/ RODRICK Attestation Patient care was provided by Advanced Practice Provider:: No The physician spent face to face time with patient:: Yes Advanced Practice Provider documentation review:: Supervising physician onsite and consulted in the evaluation and care of this patient. The physician did have a face to face encounter with the patient. This chart was documented by the indicated scribe, (Thuy Stephens Scribe) and accurately reflects the services I performed and decisions made by me, Saroj Neely MD, as attested by the provider's signature.
--- NOTE | 2017-01-25 17:53 | HISTORY AND PHYSICAL ---
DATE OF ADMISSION: 01/25/2017 HISTORY OF PRESENT ILLNESS: This is a 55-year-old, male patient of Dr. Sanabria, who had back in August an exploratory laparotomy and bowel resection for small bowel obstruction related to adhesions. His called me earlier today with patient having history a 24 hours of nausea, vomiting and colicky abdominal pain. I encouraged him to go the ER for further evaluation. In the ER he was found to be hemodynamically stable. CT scan was ordered for a bowel obstruction with no signs of bowel compromise. Of note, his previous surgical history was complicated by wound infection requiring secondary abdominal closure. MEDICAL HISTORY: Diverticulosis and hypertension. SURGICAL HISTORY: He had a left inguinal hernia repair and some midline incision felt to be related to a ventral hernia. SOCIAL HISTORY: Previous smoker, quit back in August. Drinks alcohol occasionally. No illicit drugs. FAMILY HISTORY: Positive for cancer and diabetes. MEDICATIONS: Takes diltiazem for irregular heart rate he says previously, but he is not on that currently. REVIEW OF SYSTEMS: Ten point negative except for what is mentioned in HPI. PHYSICAL EXAMINATION: Vital Signs: Temperature is 97.6 degrees, pulse is 84, blood pressure 160/85, oxygen saturation 100% on room air. General: He is alert, no acute distress. HEENT: No scleral icterus or cervical masses. Cardiovascular: Normal rate, regular rhythm. Pulmonary: No increased work of breathing. Abdomen: Soft, mildly distended and tympanic, but nontender. Integument: Warm and dry without jaundice. Musculoskeletal: Exam shows normal muscle tone throughout. Psychiatric: Appropriate affect. Neurologic: No gross focal motor deficits noted. Lymphatic: Exam shows no cervical lymphadenopathy. Peripheral vascular: Is warm and well perfused without lower extremity edema. LABS: White count is mildly elevated at 12, hematocrit 47, platelets 277,000, creatinine is 0.8, glucose 122, bilirubin is 1.21, AST and ALT 19 and 13, lactate is 1.8. Urinalysis is negative for nitrites and leukocytes. CT scan shows a bowel obstruction likely in the pelvis. ASSESSMENT AND PLAN: A 56-year-old male with a previous abdominal surgery for bowel obstruction with small bowel resection, who presents now with 24 hours of vomiting and obstipation felt to be related to a bowel obstruction. His exam is benign. His labs look okay and are consistent with dehydration. Will admit for IV fluids, NG tube decompression and nonoperative management at this point with serial abdominal exams. If exam was to change, we did discuss possibly requiring surgery, but will pursue nonoperative management initially. Continue to follow. cc: Madison Molina MD
--- NOTE | 2017-01-25 18:26 | Diag Imaging Result Doc PS360 ---
CHEST-PORTABLE - 01/25/2017 INDICATION: NG tube placement TECHNIQUE: COMPARISON: 09/04/2016 FINDINGS: There is a nasogastric tube in good position with the tip in the stomach. The lungs are normally expanded and clear. Heart size and mediastinal contours are normal. No pneumothorax or pleural effusion. IMPRESSION: Good nasogastric tube placement. Electronically signed by Michael Power 01/25/2017 6:23 PM
[2017-01-25] MEDS ORDERED: TYLENOL PO PRN (19:17)
[2017-01-25] MEDS ORDERED: PROTONIX IV ONE (19:17)
[2017-01-25] MEDS ORDERED: LR 1,000 ML IV ONE (19:17)
[2017-01-25] MEDS ORDERED: SODIUM CHLORIDE 0.9% INJ ONE (19:17)
[2017-01-25] MEDS ORDERED: ZOFRAN IV PRN (19:59)
[2017-01-25] MEDS: LOVENOX SUBQ SCH (21:04)
[2017-01-25] MEDS: MORPHINE IV PRN ×2 (21:06→23:03)
[2017-01-26] MEDS: MORPHINE IV PRN ×11 (01:09→23:12)
[2017-01-26] MEDS: ZOFRAN IV PRN ×5 (05:54→23:12)
--- NOTE | 2017-01-26 07:23 | PROGRESS NOTE ---
DATE: 01/26/2017 SUBJECTIVE: Patient doing okay. He still reports some pain and some nausea. His NG tube is having difficulty functioning, and has been on continuous suction. OBJECTIVE: Vital Signs: The patient is currently afebrile. His vital signs are stable. General: No acute distress. Resting in bed. HEENT: Normocephalic, atraumatic. Pupils equal, round, reactive to light. Mucous membranes moist. Oropharynx benign. Neck: Supple. NG tube in place with bilious output. Cardiovascular: Regular rate and rhythm. Lungs: Grossly clear. Abdomen: Soft. Does not appear to be distended. Extremities: Moves all extremities. Neurologic: Grossly intact. Skin: No signs of jaundice. Vascular: All extremities perfused. IMAGING AND LABORATORY DATA: Laboratory: None this morning. Abdominal film pending. I will order it for today. ASSESSMENT AND PLAN: A 56-year-old male with partial small bowel obstruction. Partial small bowel obstruction. At this time, will have the nurses place his nasogastric tube to low wall intermittent suction. Will get an abdominal film. Will keep him nothing by mouth, and nasogastric tube to decompress. My plan would be to watch him and not operate on him unless surgically indicated. cc: Preet Sanabria MD
--- NOTE | 2017-01-26 12:30 | Diag Imaging Result Doc PS360 ---
EXAM: FLAT/UPRIGHT ABD/1 VIEW CHEST INDICATION: PSBO TECHNIQUE: 3 views COMPARISON: Chest radiograph dated 01/25/2017 FINDINGS: There are distended loops of small bowel containing gas. This is similar to a previous CT dated 01/25/2017. An NG tube is in place. There is no evidence of large volume free abdominal gas. There is no evidence of organomegaly. The lungs are grossly clear. There is no discrete pleural fluid collection or pneumothorax. The cardiomediastinal silhouette and central vasculature are grossly unremarkable. IMPRESSION: Distended loops of small bowel similar to a prior CT suggesting obstruction. Electronically signed by Rayo Haskins 01/26/2017 12:28 PM
[2017-01-26] MEDS: LOVENOX SUBQ SCH (20:44)
[2017-01-26] MEDS: LR 1,000 ML IV SCH (23:12)
[2017-01-27] MEDS: MORPHINE IV PRN ×11 (01:02→23:44)
[2017-01-27] MEDS: ZOFRAN IV PRN ×3 (03:23→12:02)
[2017-01-27] MEDS: LR 1,000 ML IV SCH (06:16)
--- NOTE | 2017-01-27 06:47 | PROGRESS NOTE ---
DATE: 01/27/2017 SUBJECTIVE: Patient says his abdominal pain is better but does report some pressure-like sensations on his chest. His NG tube is in place and has at least 400 recorded out. Again, he says that he is feeling better as far as abdomen is concerned. OBJECTIVE: Vital Signs: The patient is currently afebrile. His vital signs are stable. General: No acute distress. HEENT: Normocephalic, atraumatic. Pupils equal, round, and react to light. Mucous membranes moist. Oropharynx benign. Neck: Supple. Trachea midline. Cardiovascular: Regular rate and rhythm. Lungs: Grossly clear. Abdomen: Soft, nontender, and nondistended. Extremities: Moves all extremities. Neurologic: Grossly intact. Skin: No signs of jaundice. Vascular: All extremities perfused. LABORATORY: None this morning. He does have some emergent troponins pending and EKG pending. ASSESSMENT AND PLAN: A 56-year-old male with a small-bowel obstruction. 1. Small bowel obstruction. At this time, I think it is improving. He does report his abdominal pain has improved. He does report passing gas. I will get an abdominal film this morning to see how this looks to see if this has continued to improve. 2. Chest pain. At this time, will order emergent troponins and EKG. If there is any abnormality, may need to consider consulting Cardiology. cc: Preet Sanabria MD
--- NOTE | 2017-01-27 06:53 | EKG Report ---
Test Performed on : 01/27/2017 06:06:27 AM Test Reason : chest pain Blood Pressure : / mmHG Vent. Rate : 082 BPM Atrial Rate : 082 BPM P-R Int : 136 ms QRS Dur : 090 ms QT Int : 372 ms P-R-T Axes : 069 -38 045 degrees QTc Int : 434 ms Sinus rhythm. with frequent premature ventricular complexes. Left axis deviation Nonspecific ST and T wave abnormality Abnormal ECG When compared with ECG of 04-SEP-2016 10:57, premature ventricular complexes. are now present T wave inversion no longer evident in V4-V5 Confirmed by Ambrose Vega DO ([id number]) on 01/27/2017 6:15:24 PM
[2017-01-27 08:08] LABS: CK INDEX 0.3 (0.0-2.5); CK-MB 3.05 ng/mL (0.0-5.0)
[2017-01-27] MEDS: NS 1,000 ML IV SCH ×2 (09:46→17:22)
[2017-01-27] MEDS: SODIUM CHLORIDE 0.9% INJ SCH ×2 (09:47→21:26)
[2017-01-27] MEDS: PROTONIX IV SCH ×2 (09:47→21:26)
[2017-01-27 09:54] LABS: MANUAL DIFF NEEDED? NO
--- NOTE | 2017-01-27 09:56 | CONSULTATION ---
DATE OF CONSULTATION: 01/27/2017 HISTORY OF PRESENT ILLNESS: This is a 56-year-old. He was admitted to the hospital on 09/03/2016 and discharged on 09/17/2016 with partial small bowel obstruction. Past medical history, history of diverticulosis, hypertension. He presented in August with a several day history of abdominal pain, nausea, and vomiting. Seen by his primary care physician, Dr. Rayo Miranda, and had abdominal distention. Abdominal film showed partial bowel obstruction and he came to [facility]. He had an NG tube place. Surgical history includes left inguinal hernia repair, unknown lower midline incision for surgery. He was discharged on 09/17. He underwent exploratory laparotomy and small-bowel resection at that time per Dr. Sanabria. At home he stated that about 4 days ago or 5 days ago, on Thursday, this is Thursday, he started having nausea, abdominal distention, abdominal discomfort in the lower abdomen. He has not been eating well or drinking much and since Thursday really has not eaten or drank much at all. No bowel movement since Thursday and more and more comfortable, vomiting. NG tube was placed. He does have coffee-ground drainage from that. He does state he feels a little bit better. Admitted now to Dr. Sanabria to explore abdominal obstruction. I guess the possibility of ulcer as well. His CPK total was elevated, which I do not think it is related to coronary ischemia. I think that is predominantly going to be muscle enzymes. CT of the abdomen and pelvis done on the showed partial small bowel obstruction, trace ascites, and bilateral nephrolithiasis, apparently nonobstructive. EKG done this morning, normal sinus rhythm, left axis deviation, nonspecific ST segments, and some PVCs appreciated. PAST MEDICAL HISTORY: Other past medical history, history of kidney stones. He has had 6 or 7 stone. Some of them they had to extract invasively. He has had lithotripsy in the past. SOCIAL HISTORY: He smokes about a pack and a half which he has done for 45 years. He quit in August. He drinks maybe 1 beer week. He is and has 2 children. He has worked as a machinist wood for 38 years. He does take frequent BC Powders and Goody Powders for discomfort and I think that is abdominal discomfort. FAMILY HISTORY: Mother with dementia, diabetes mellitus type 2, stomach cancer. Father with history of dementia, diabetes mellitus type 2, brain cancer. Brother with history of colon cancer. REVIEW OF SYSTEMS: He is not eating or drinking much. He feels like he has lost weight. He has general weakness which he states he is getting worse. Complains of abdominal pain and nausea and distention. No gross hematuria reported. He does not report any fever or chills. Skin is unremarkable. PHYSICAL EXAMINATION: Vital Signs: Temperature 97.7 degrees, pulse 86, respirations 20, blood pressure 137/64. HEENT: The pupils are equal and round. Neck: CVP less than 6 cm. Lungs: Clear in all lung garrett. Cardiovascular: Regular rhythm and rate without murmur or S3. Abdomen: Soft. Skin: Warm and dry. Intake and output: Urine output over 3 L. LAB: From the , white count 12,450, hematocrit 47, platelet count 277,000. Chemistries: Creatinine was 931. Electrolytes from the , sodium 138, potassium 4.5, chloride 95, bicarb 27, BUN 17, creatinine 0.8, blood sugar 122. Liver functions: Transaminases, AST, and ALT were all within normal limits. Total protein 8.4. Albumin 4.7. ASSESSMENT AND PLAN: 1. Small bowel obstruction. Appears to be improving. He reports abdominal pain has improved and he is passing some gas. NG tube in place with coffee-ground material. I am not sure if the plan is to maybe look with an EGD, upper GI. He has been taking a lot of BC Powders and he does have a coffee-ground drainage from the NG tube. 2. Chest pain. He really denied chest pain to me but he did have an elevated CPK. His troponin is unremarkable. His EKG is unremarkable. So, no sign of cardiac ischemia. I think his CPK is probably predominantly skeletal muscle enzyme. Will continue IV fluids. His renal function looks good. He does not need any bicarb. No sign of acidosis. Will follow his CPK total and electrolytes and it may be worthwhile to get a protein serum electrophoresis. We will check T4 and TSH, B12 and folate, and a.m. cortisol level; that might be helpful. Recommend we continue fluids. I think we can convert him to normal saline and run it at 125 mL an hour. We will check a Chem 12 with a magnesium, phosphorus level in the morning, and CBC. Dr. Garcia has already been consulted. cc: Matthew Melton MD
[2017-01-27 10:03] LABS: BASO% 0.2 % (0.0-0.8); EOS# 0.06 X1000 (0.0-0.7); EOS% 1.3 % (0.0-10.0); HEMATOCRIT 42.1 % (42.0-52.0); HEMOGLOBIN 14.1 g/dL (14.0-18.0); LYMPH# 1.61 X1000 (1.2-3.4); LYMPH% 35.4 % (20.5-51.1); MCH 31.9 PG (27-31); MCHC 33.5 g/dL (33-37); MCV 95.2 FL (81-99); MONO# 0.76 X1000 (0.11-0.59); MONO% 16.7 % (1.7-9.3); MPV 10.2 FL (7.4-10.4); NEUT% 46.4 % (42.2-75.2); PLT 206 X1000 (130-400); RBC 4.42 XMIL (4.7-6.1)
[2017-01-27 10:07] LABS: INR 1.07; PROTIME 11.3 Seconds (9.2-11.7); PTT 29.9 Seconds (22.0-36.0)
[2017-01-27 10:11] LABS: HEMOGLOBIN A1C 5.3 % (4.8-6.0)
[2017-01-27 10:22] LABS: AGAP 12; ALBUMIN 3.4 g/dL (3.5-5.0); ALKALINE PHOSPHATASE 64 U/L (32-122); BUN 17 mg/dL (8-22); CALCIUM 8.2 mg/dL (8.8-10.2); CHLORIDE 95 mmol/L (98-107); COSMO 278; GOT 20 U/L (10-34); GPT 15 U/L (10-44); HDL 43 mg/dL (35-55); IRON SATURATION 7 %; LDL 56 mg/dL; MAGNESIUM 1.8 mg/dL (1.5-2.7); POTASSIUM 4.1 mmol/L (3.5-5.1); PREALBUMIN 10.5 mg/dL (20-40); SODIUM 139 mmol/L (136-145); TCO2 32 mmol/L (25-35); TIBC 176 ug/dL; TOTAL BILIRUBIN 0.46 mg/dL (0.20-1.00); TOTAL IRON 12 ug/dL (53-167); TOTAL PROTEIN 6.5 g/dL (6.3-8.3); TRIGLYCERIDES 108 mg/dL (39-160); UNBOUND IRON 164 ug/dL (112-346); VLDL 22 mg/dL
[2017-01-27 10:39] LABS: FREE T4 1.32 ng/dL (0.93-1.70)
[2017-01-27] MEDS: CARAFATE LIQUID NG SCH ×3 (12:14→23:44)
[2017-01-28] MEDS: NS 1,000 ML IV SCH ×3 (01:29→18:58)
[2017-01-28] MEDS: MORPHINE IV PRN ×8 (02:45→21:23)
[2017-01-28] MEDS: CARAFATE LIQUID NG SCH ×3 (04:59→18:29)
[2017-01-28 05:38] LABS: MANUAL DIFF NEEDED? NO
[2017-01-28 05:48] LABS: BASO% 0.2 % (0.0-0.8); EOS# 0.07 X1000 (0.0-0.7); EOS% 1.4 % (0.0-10.0); HEMATOCRIT 38.2 % (42.0-52.0); LYMPH# 1.44 X1000 (1.2-3.4); LYMPH% 29.3 % (20.5-51.1); MCH 32.3 PG (27-31); MONO# 0.79 X1000 (0.11-0.59); MONO% 16.1 % (1.7-9.3); MPV 10.1 FL (7.4-10.4); PLT 197 X1000 (130-400); RBC 4.02 XMIL (4.7-6.1)
[2017-01-28 05:55] LABS: INR 1.08; PROTIME 11.4 Seconds (9.2-11.7); PTT 30.4 Seconds (22.0-36.0)
[2017-01-28 06:18] LABS: AGAP 17; ALBUMIN 3.1 g/dL (3.5-5.0); ALKALINE PHOSPHATASE 57 U/L (32-122); BUN 12 mg/dL (8-22); CHLORIDE 95 mmol/L (98-107); COSMO 276; GOT 19 U/L (10-34); GPT 13 U/L (10-44); MAGNESIUM 1.6 mg/dL (1.5-2.7); POTASSIUM 3.7 mmol/L (3.5-5.1); SODIUM 139 mmol/L (136-145); TCO2 27 mmol/L (25-35); TOTAL BILIRUBIN 0.49 mg/dL (0.20-1.00)
--- NOTE | 2017-01-28 06:24 | PROGRESS NOTE ---
DATE: 01/28/2017 SUBJECTIVE: The patient's chest pain is doing better. I appreciated the hospitalist seeing the patient. His overall clinical picture does not suggest acute myocardial infarction. He did have some dark coffee-ground fluid come out of his NG tube, and he was started on Protonix. He seems to be doing okay at this point. OBJECTIVE: Vital Signs: The patient is currently afebrile. His vital signs are stable. HEENT: Normocephalic, atraumatic. Pupils equal, round, react to light. Mucous membranes moist. Oropharynx benign. Neck: Supple. Trachea midline. Cardiovascular: Regular rate and rhythm. Lungs: Clear. Abdomen: Soft, nontender, nondistended. Extremities: He moves all extremities. Neurologic: Grossly intact. Skin: No signs of jaundice. Vascular: All extremities perfused. LABORATORY DATA: White blood cell count this morning is 4, hematocrit 38. The remainder of labs reviewed. ASSESSMENT AND PLAN: A 56-year-old male with a bowel obstruction. 1. Bowel obstruction. At this time, I think it is improving. We will clamp his nasogastric tube, start him on clear liquids and see how he does. I do think that some of his bloody output from his nasogastric tube is related to the nasogastric tube itself causing mucosal irritation. He is on Protonix and Carafate. We will continue to monitor. 2. Chest pain. At this time, workup thus far has not shown any acute myocardial infarction. He is having premature ventricular contractions, but we will continue to follow. cc: MD Matthew Kenny MD
--- NOTE | 2017-01-28 06:35 | EKG Report ---
Test Performed on : 01/28/2017 06:08:54 AM Test Reason : chest pain Blood Pressure : / mmHG Vent. Rate : 080 BPM Atrial Rate : 080 BPM P-R Int : 134 ms QRS Dur : 094 ms QT Int : 378 ms P-R-T Axes : 066 -36 066 degrees QTc Int : 435 ms Sinus rhythm. with frequent premature ventricular complexes. Left axis deviation Nonspecific ST and T wave abnormality Abnormal ECG When compared with ECG of 27-JAN-2017 06:06, No significant change was found Confirmed by Ambrose Vega DO ([id number]) on 01/28/2017 5:59:50 PM
--- NOTE | 2017-01-28 09:05 | PROGRESS NOTE ---
DATE: 01/28/2017 SUBJECTIVE: Mr. Barth is feeling a little better. He did have a little more bowel sounds, and still has NG-tube in place. OBJECTIVE: Vital Signs: Temperature 98.9 degrees, pulse 76, respirations 12, blood pressure 176/67. Lungs: Clear in all lung garrett. Cardiovascular: Regular rhythm and rate without murmur or S3. Abdomen: Soft. Skin: Warm and dry. Urine output 2300 mL. LABORATORY DATA: White count 4920, hematocrit 38, platelet count 197,000. Sodium 139, potassium 3.7, chloride 95, BUN 12, creatinine 0.6. CPK 768 and 628. ASSESSMENT AND PLAN: 1. Bowel obstruction. Will clamp his nasogastric tube and start clear liquids, see how he does. He has some bloody output from nasogastric tube. 2. Chest pain. He does not appear to have cardiac ischemia. He was having some premature ventricular contractions. Electrolytes and cardiac enzymes, troponin is less than 0.01. CPK coming down. It was 768 and 628. Continue present intravenous fluids. He is on Carafate 1 gram every 6 hours, Protonix 40 mg intravenously every 12 hours, normal saline at 125 mL an hour. cc: Matthew Melton MD
[2017-01-28] MEDS: PROTONIX IV SCH ×2 (09:17→21:23)
[2017-01-28] MEDS: SODIUM CHLORIDE 0.9% INJ SCH ×2 (09:17→21:23)
[2017-01-28] MEDS: ZOFRAN IV PRN ×2 (09:26→15:46)
[2017-01-29] MEDS: MORPHINE IV PRN ×4 (01:26→19:04)
[2017-01-29] MEDS: NS 1,000 ML IV SCH ×3 (01:29→19:00)
[2017-01-29] MEDS: CARAFATE LIQUID NG SCH ×5 (03:37→21:00)
--- NOTE | 2017-01-29 07:04 | PROGRESS NOTE ---
DATE: 01/29/2017 SUBJECTIVE: Patient doing okay. He has tolerated his clear liquids. He had his NG tube removed. He is still passing gas. OBJECTIVE: Vital Signs: Patient is currently afebrile. His vital signs are stable. General: No acute distress. HEENT: Normocephalic, atraumatic. Pupils equal, round, react to light. Mucous membranes moist. Oropharynx benign. Neck: Supple. Trachea midline. Cardiovascular: Regular rate and rhythm. Lungs: Grossly clear. Abdomen: Soft, nontender, nondistended. Extremities: Moves all extremities. Neurologic: Grossly intact. Skin: No signs of jaundice. Vascular: All extremities perfused. LABORATORY: None from this morning. Reviewed from yesterday. ASSESSMENT AND PLAN: A 56-year-old male with bowel obstruction. 1. Bowel obstruction. At this time, he is clinically improving. I removed his nasogastric tube. I will put him on a full liquid diet to see how he does. Hopefully, we can get him out of here soon. He is on Protonix and Carafate for gastrointestinal irritation from his nasogastric tube. 2. Chest pain. At this time, workup has been negative. We will continue to monitor. Hospitalist service is following. I appreciate their help. cc: MD Matthew Kenny MD
[2017-01-29] MEDS: PROTONIX IV SCH ×3 (08:10→21:00)
[2017-01-29] MEDS: SODIUM CHLORIDE 0.9% INJ SCH ×2 (08:10→21:00)
--- NOTE | 2017-01-29 09:29 | PROGRESS NOTE ---
DATE: 01/29/2017 SUBJECTIVE: Mr. Barth is resting comfortably. He was sleeping. He was easy to arouse. He has got more rumbling going on in his belly. Feels a little better. OBJECTIVE: Vital signs: Temperature 98.3 degrees, pulse 89, respirations 14, blood pressure 150/77. URINE OUTPUT: 3600. LABORATORIES: Reviewed from yesterday. Hematocrit stable at 38, although when he came it was 47. I think a lot of this is volume, intravascular volume expansion. His lab from the unremarkable. ASSESSMENT AND PLAN: 1. Bowel obstruction, clinically improving. His NG tube was pulled out. He is on full liquid diet. Hopefully, we can get out soon. 2. Chest pain. No sign of cardiac ischemia or coronary insufficiency at this point. 3. General weakness and deconditioning. Seems to be improving as well. Reviewed his orders. No change. cc: Matthew Melton MD
[2017-01-30] MEDS: CARAFATE LIQUID NG SCH ×4 (01:47→16:20)
[2017-01-30] MEDS: NS 1,000 ML IV SCH ×4 (01:48→16:26)
[2017-01-30] MEDS: MORPHINE IV PRN ×2 (02:09→05:02)
--- NOTE | 2017-01-30 05:33 | EKG Report ---
Test Performed on : 01/30/2017 03:01:14 AM Test Reason : 3 beat run of vtach Blood Pressure : / mmHG Vent. Rate : 076 BPM Atrial Rate : 076 BPM P-R Int : 140 ms QRS Dur : 102 ms QT Int : 388 ms P-R-T Axes : 074 -35 053 degrees QTc Int : 436 ms Sinus rhythm. with frequent premature ventricular complexes. Possible Left atrial enlargement Left axis deviation Incomplete right bundle branch block Left ventricular hypertrophy Nonspecific ST and T wave abnormality Abnormal ECG When compared with ECG of 30-JAN-2017 03:00, (Unconfirmed) premature supraventricular complexes. are no longer present Confirmed by Ambrose Vega DO ([id number]) on 01/30/2017 9:14:59 AM
[2017-01-30 07:33] LABS: MAGNESIUM 1.6 mg/dL (1.5-2.7)
[2017-01-30 07:36] LABS: AGAP 12; BUN 4 mg/dL (8-22); CALCIUM 8.3 mg/dL (8.8-10.2); CHLORIDE 96 mmol/L (98-107); COSMO 272; POTASSIUM 3.3 mmol/L (3.5-5.1); SODIUM 138 mmol/L (136-145); TCO2 30 mmol/L (25-35)
[2017-01-30] MEDS: PROTONIX IV SCH (08:50)
[2017-01-30] MEDS: SODIUM CHLORIDE 0.9% INJ SCH ×2 (08:51→08:52)
[2017-01-30] MEDS ORDERED: MIRALAX PO SCH (09:00)
--- NOTE | 2017-01-30 09:21 | PROGRESS NOTE ---
DATE: 01/30/2017 SUBJECTIVE: The patient tolerated his full liquid diet. Passing gas. He has not had a bowel movement. OBJECTIVE: Vital Signs: Patient is currently afebrile. His vital signs are stable. General: No acute distress. HEENT: Normocephalic and atraumatic. Pupils are equal, round, and reactive to light. Mucous membranes moist. Oropharynx benign. Neck supple. Trachea midline. Cardiovascular: Regular rate and rhythm. Lungs grossly clear. Abdomen soft, nontender, nondistended. Extremities: Moves all extremities. Neurologic: Grossly intact. Skin: No signs of jaundice. Vascular: All extremities perfused. LABORATORY: None from today. ASSESSMENT AND PLAN: A 56-year-old male with bowel obstruction. 1. Bowel obstruction. At this time, he is clinically improving. I put him on a gastrointestinal soft diet. I will actually have him take MiraLAX everyday. Hopefully, he can be discharged here pretty soon. He is currently on Protonix and Carafate given gastrointestinal irritation from his NG tube. We will continue that for right now. 2. Chest pain. At this time, he seems to be doing okay. He did have a 3-beat run of ventricular tachycardia per the nurse during the night, but he is asymptomatic. I will ask the hospitalist to investigate this to potentially see if he needs to have cardiology involved but, again, the patient seems to be asymptomatic from this. cc: MD Matthew Kenny MD
[2017-01-30 11:43] VITALS: BP 126/73
--- NOTE | 2017-01-30 17:20 | DISCHARGE SUMMARY ---
ADMISSION DATE: 01/25/2017 DISCHARGE DATE: 01/30/2017 Mr. Barth was admitted on 01/25/2017 and discharged on 01/30/2017. This is a 56-year-old who came to the hospital on 09/03/2016 and was discharged on 09/07/2016. At that time he had a small bowel obstruction. PAST MEDICAL HISTORY: Diverticulosis, hypertension. When he presented in August with abdominal pain, he is a patient of Dr. Rayo Miranda, he had abdominal distention. Abdominal film showed partial small bowel obstruction. He came to [facility] and had an NG tube placed. PAST SURGICAL HISTORY: Includes left inguinal hernia repair. Unknown lower midline incision for surgery. He underwent exploratory laparotomy in August, a small bowel resection at that time per Dr. Sanabria. About 4 days ago on this admission he started having nausea, abdominal distention and abdominal discomfort. Lower abdominal pain. Admitted for small bowel obstruction. Used conservative measures and he seemed to get better. Did have an NG tube placed. He had coffee-ground material. Continued suction but he showed steady improvement. Chest x-ray unremarkable. [place] he had good improvement, advanced his diet to regular diet. He was having bowel movements and felt he could go home on 01/30/2017. DISCHARGE MEDICATIONS: Carafate 1 g q.6 hours. MiraLAX 17 g p.o. daily and Protonix 40 mg, will give him p.o. twice a day for the next 4 weeks. He will follow up with Dr. Sanabria, follow up with Dr. Miranda as well. cc: Matthew Melton MD
== END 2017-01-30 18:42 | disposition home or self-care (01) ==
LOC: ED 13:26 → 4N 17:07
PROVIDERS: ADMIT Emergency Medicine; ATTEND Surgery